=== PATIENT | male | born 1975 | race Caucasian/White ===

== ENCOUNTER 2022-09-23 09:49 | Emergency (ER) | payer MEDICAID ==
[~2022-09-23] VITALS: Ht 172.7 cm; Wt 90.7 kg
[2022-09-23 09:50] VITALS: BP_SYST 182
--- NOTE | 2022-09-23 10:10 | NUR ---
Patient to ER bed 1 to gown for evaluation. Side rails up. Report given to RANDELL ARREOLA.
--- NOTE | 2022-09-23 10:15 | NUR ---
ER at bedside examining patient.
[2022-09-23 10:24] VITALS: BP_SYST 165
--- NOTE | 2022-09-23 10:25 | NUR ---
PT IS MEDICALLY FOR D/C. D/C INSTRUCTIONS GIVEN TO PT. PT TO FOLLOW-UP WITH PCP WITHIN 1-3 DAYS AND TO RETURN TO ED FOR WORSENING S/S. PT IS MEDICALLY CLEARED FOR BOOKING. PT VERBALIZED UNDERSTANDING. PT IS AAOX4, NAD, VSS, WRISTBAND REMOVED. PT AMBULATORY WITH STEADY GAIT. PT LEFT ED WITH ALL BELONGINGS.
== END 2022-09-23 10:25 ==
LOC: SED 09:49
DX: Z02.89 Encounter for other administrative examinations (principal); R00.2 Palpitations; Z79.899 Other long term (current) drug therapy
CPT/HCPCS: 93005; 99283

== ENCOUNTER 2024-02-02 09:21 | Emergency (ER) | payer MEDICAID ==
[~2024-02-02] VITALS: Ht 180.3 cm; Wt 80.7 kg
[2024-02-02 09:24] VITALS: BP_SYST 165; PULSE 82; RESP 16; TEMP 98; O2SAT 98
[2024-02-02] MEDS: IBUPROFEN 600 MG TABLET PO ONE (10:10)
[2024-02-02] MEDS ORDERED: IBUP-1969 PO (11:12)
[2024-02-02 11:30] VITALS: BP_SYST 152; PULSE 81; RESP 16; TEMP 98; O2SAT 98
== END 2024-02-02 11:29 | disposition home or self-care (01) ==
LOC: SED 09:21
DX: S80.01XA Contusion of right knee, initial encounter (principal); Z79.899 Other long term (current) drug therapy; W01.0XXA Fall on same level from slipping, tripping and stumbling without subsequent striking against object, initial encounter; Y93.89 Activity, other specified; Y92.89 Other specified places as the place of occurrence of the external cause; Y99.8 Other external cause status
CPT/HCPCS: 73560; 99283